=== PATIENT | male | born 1980 | race Caucasian/White ===

== ENCOUNTER 2018-08-30 09:33 | Emergency (ER) | payer OTHER ==
[~2018-08-30] VITALS: Ht 185.4 cm; Wt 108.9 kg
[~2018-08-30 09:33] MED LIST: FAMO40 PO; SUCR1 PO
[2018-08-30] MEDS ORDERED: ALBU90OI INH (10:16)
[2018-08-30] MEDS ORDERED: Aerochamber1 EACH INH (10:16)
== END 2018-08-30 10:21 | disposition home or self-care (01) ==
LOC: ER 09:33
DX: J11.1 Influenza due to unidentified influenza virus with other respiratory manifestations (principal); B34.9 Viral infection, unspecified; F17.200 Nicotine dependence, unspecified, uncomplicated
CPT/HCPCS: 99282

== ENCOUNTER 2018-11-23 03:04 | Emergency (ER) | payer OTHER ==
[~2018-11-23] VITALS: Ht 185.4 cm; Wt 106.1 kg
[~2018-11-23 03:04] MED LIST changes: +ALBU90OI INH; +Aerochamber1 EACH INH
[2018-11-23 03:52] LABS: BASOPHILS ABSOLUTE AUTO 0.07 K/mm3 (0.00-0.23); BASOPHILS PERCENT AUTO 1 % (0-2); EOSINOPHILS ABSOLUTE AUTO 0.32 K/mm3 (0.00-0.68); EOSINOPHILS PERCENT AUTO 4 % (0-6); Hematocrit 46.1 % (37.0-53.0); Hemoglobin 15.5 g/dL (13.5-17.5); IMMATURE GRAN ABSOLUTE AUTO 0.03 K/mm3 (0.00-0.10); IMMATURE GRAN PERCENT AUTO 0 % (0-1); LYMPHOCYTES ABSOLUTE AUTO 3.48 K/mm3 (0.84-5.20); LYMPHOCYTES PERCENT AUTO 40 % (21-46); MONOCYTES ABSOLUTE AUTO 0.56 K/mm3 (0.16-1.47); MONOCYTES PERCENT AUTO 7 % (4-13); Mean Corpuscular HGB 32.2 pg (26.0-34.0); Mean Corpuscular HGB Conc 33.6 g/dL (31.5-36.5); Mean Corpuscular Volume 96 fL (80-100); Mean Platelet Volume 10.4 fL (9.1-12.4); NEUTROPHILS ABSOLUTE AUTO 4.16 K/mm3 (1.96-9.15); NEUTROPHILS PERCENT AUTO 48 % (41-73); Platelet Count 330 K/mm3 (150-400); RDW Coefficient Variation 12.6 % (11.7-14.2); RDW Standard Deviation 45.1 fL (35.1-46.3); Red Blood Cell Count 4.82 M/mm3 (4.30-5.90); White Blood Cell Count 8.62 K/mm3 (4.00-11.30)
[2018-11-23 04:10] LABS: Alanine Aminotransfer (ALT/SGP 768 U/L (12-78); Albumin/Globulin Ratio 1.1 (0.8-1.8); Alk Phos 181 U/L (50-136); Anion Gap 8 mmol/L (6-16); Aspartate Aminotrans (AST/SGOT 170 U/L (12-37); Bilirubin, Total 0.9 mg/dL (0.1-1.0); Blood Urea Nitrogen 19 mg/dL (8-24); Bun/Creatinine Ratio 20.1 (12.0-20.0); CO2, Blood 25 mmol/L (21-32); Calcium, Blood 8.9 mg/dL (8.5-10.1); Chloride, Blood 107 mmol/L (98-108); Creatinine, Blood 0.94 mg/dL (0.60-1.20); Globulin, Blood 3.6 g/dL (2.2-4.0); Glomerular Filtration Rate >60 (60-); Glucose, Blood 86 mg/dL (70-99); Potassium, Blood 4.2 mmol/L (3.5-5.5); Sodium, Blood 140 mmol/L (136-145); Total Protein, Blood 7.6 g/dL (6.4-8.2)
== END 2018-11-23 06:14 | disposition home or self-care (01) ==
LOC: ER 03:04
PROVIDERS: Emergency Medicine
DX: R10.13 Epigastric pain (principal); R11.2 Nausea with vomiting, unspecified; F17.210 Nicotine dependence, cigarettes, uncomplicated
CPT/HCPCS: 36415; 74176; 76705; 80053; 83690; 85025; 96361; 96374; 96375; 96376; 99284-25; A9270-GY; J1170; J2405; J7030

== ENCOUNTER 2019-04-14 18:22 | Emergency (ER) | payer OTHER ==
[~2019-04-14] VITALS: Ht 185.4 cm; Wt 104.3 kg
[~2019-04-14 18:22] MED LIST changes: +OMEP20ER; +Percocet 5-3251 EACH PO
== END 2019-04-14 19:47 | disposition home or self-care (01) ==
LOC: ER 18:22
DX: G43.909 Migraine, unspecified, not intractable, without status migrainosus (principal); F17.210 Nicotine dependence, cigarettes, uncomplicated
CPT/HCPCS: 96372; 99283-25; J0780; J1200; J1885

== ENCOUNTER 2019-04-17 00:17 | Emergency (ER) | payer OTHER ==
[~2019-04-17] VITALS: Ht 185.4 cm; Wt 104.3 kg
== END 2019-04-17 02:02 | disposition home or self-care (01) ==
LOC: ER 00:17
DX: R51 Headache (principal); F17.210 Nicotine dependence, cigarettes, uncomplicated
CPT/HCPCS: 70450; 96361; 96374; 96375; 99284-25; J1200; J1630; J1885; J2405; J3030; J7030

== ENCOUNTER 2020-12-29 13:43 | Emergency (ER) | payer OTHER ==
[~2020-12-29] VITALS: Ht 185.4 cm; Wt 120.2 kg
== END 2020-12-29 17:15 | disposition home or self-care (01) ==
LOC: ER 13:43
DX: S01.81XA Laceration without foreign body of other part of head, initial encounter (principal); S50.11XA Contusion of right forearm, initial encounter; F17.210 Nicotine dependence, cigarettes, uncomplicated; V86.59XA Driver of other special all-terrain or other off-road motor vehicle injured in nontraffic accident, initial encounter
CPT/HCPCS: 12011; 36415; 70450; 71045; 73060; 73070; 73090; 90471; 90714; 96374-59; 96375-59; 99283-25; A9270; J2405; J3010